=== PATIENT | female | born 1990 | race Caucasian/White ===

== ENCOUNTER → 2023-12-30 | Outpatient (CLI) | payer OTHER, SELFPAY ==
--- NOTE | 2023-12-30 14:25 | NEURO_ITS ---
NCS and/or EMG Patient Report Ordering Doctor: Kusum Arreguin DATE OF SERVICE: 12/30/23 [place] presents for electrodiagnostic testing of the right upper limb. She reports intermittent numbness and heaviness in the right arm. Electrodiagnostic findings: Right median motor nerve demonstrates normal distal latency, amplitude borderline reduced conduction velocity. Right ulnar motor response.is within normal limits. Normal median and ulnar F?wave. Sensory responses are normal. Needle EMG testing was performed the right upper limb. All muscles tested showed no evidence of denervation with normal motor unit action potentials. Electrodiagnostic impression: This is a normal electrodiagnostic study of the right upper limb. There is no electrodiagnostic evidence for peripheral neuropathy including carpal tunnel or cubital tunnel syndrome. There is no electrodiagnostic evidence for cervical radiculopathy. Multi Select Codes Neurology Neurology Interp Codes: 75772-27 Musc test done w/n test comp (interp) and 95 [id number] Nrv cndj test 7-8 studies (interp)
== END | disposition home or self-care (01) ==
PROVIDERS: PCP Family Medicine; Referring Provider Family Medicine; Visit Provider Family Medicine
DX: R20.2 Paresthesia of skin (principal)
CPT/HCPCS: 95886; 95910